=== PATIENT | female | born 1990 ===

== ENCOUNTER 2018-02-24 11:48 | Emergency (ER) | payer OTHER ==
[2018-02-24 12:09] VITALS: BP 105/69
--- NOTE | 2018-02-24 12:15 | UC ---
Throat Pain/Nasal [place] HPI - HPI Summary HPI Summary: 5 days of sinusitis symptoms,. pt states shes approx 12wks. and last night noticed her epiglottis was large but denied any swallowing or breathing issues. - History of Current Complaint Chief Complaint: UCRespiratory Stated Complaint: SINUS COMPLAINT,SORE THROAT Time Seen by Provider: 02/24/18 12:10 Hx Obtained From: Patient ?: Yes - 12 wks Pain Intensity: 6 Pain Scale Used: 0-10 Numeric Cough: Nonproductive - Allergies/Home Medications Allergies/Adverse Reactions: Allergies Allergy/AdvReac Type Severity Reaction Status Date / Time Sulfa (Sulfonamide Allergy Severe Anaphylatic Verified 02/24/18 12:10 Antibiotics) Shock Home Medications: Home Medications Enoxaparin(*) [Lovenox(*)] 02/24/18 [History] [id number]/Iron Fum/Folic/Docusate [ 19 Tablet] 02/24/18 [History] PMH/Surg Hx/FS Hx/Imm Hx - Additional Past Medical History Additional PMH: FACTOR V DEF Previously Healthy: Yes - Cardiovascular History: Bleeding Disorders - Surgical History Surgical History: Yes Surgery Procedure, Year, and Place: tonsils, wisdom teeth - Social History Alcohol Use: None Substance Use Type: None Smoking Status (MU): Never Smoked Tobacco Review of Systems All Other Systems Reviewed And Are Negative: Yes Constitutional: Positive: Chills. Negative: Fever, Fatigue ENT: Positive: Sinus Congestion, Sinus Pain/Tenderness Gastrointestinal: Positive: Vomiting - 1 EPISODE, Other - denies swallowing issues Genitourinary: Negative: Dysuria Neurological: Negative: Headache Psychological: Positive: Depressed Physical Exam Triage Information Reviewed: Yes Appearance: Well-Appearing Vital Signs: Initial Vital Signs Temp 98.6 F 02/24/18 12:04 Pulse 68 02/24/18 12:04 Resp 16 02/24/18 12:04 BP 105/69 02/24/18 12:04 Pulse Ox 98 02/24/18 12:04 Vital Signs Reviewed: Yes Eyes: Positive: Conjunctiva Clear ENT: Positive: Pharynx normal, Nasal congestion, TMs normal, Uvula midline, Other - epiglottis noted, not enlarged or red.. Negative: Tonsillar swelling, Dental tenderness, Sinus tenderness Neck: Positive: Supple, Nontender, No Lymphadenopathy Respiratory Exam: Normal Cardiovascular Exam: Normal Neurological: Positive: Alert Skin Exam: Normal Throat Pain/Nasal Course/Dx - Course Assessment/Plan: Sinusitis w/ sore throat likely from post nasal drip. Rapid strep neg. comfort measures for this as it is viral. Her concern for epiglottitis was noted but she does not have this dx. vitals good. On exam she has a prominent epiglottitis which is a normal variant. We discussed her returning to urgent care should she develop breathing problems or fever. - Differential Dx/Diagnosis Differential Diagnosis/HQI/PQRI: Epiglottitis, Pharyngitis, Tonsillitis, URI Provider Diagnosis: Sinusitis, acute Discharge - Sign-Out/Discharge Documenting (check all that apply): Patient Departure All imaging exams completed and their final reports reviewed: No Studies - Discharge Plan Condition: Good Disposition: HOME Patient Education Materials: Sinusitis (ED) Referrals: No Primary Care Phys,NOPCP [Primary Care Provider] - Additional Instructions: Your rapid strep was negative and I do not think you have epiglottitis. Your sinusitis is viral and self limiting; it will go away soon. Should you develop fever or breathing issues please return. - Billing Disposition and Condition Condition: GOOD Disposition: Home
== END 2018-02-24 13:11 | disposition home or self-care (01) ==
LOC: UCEAST 11:48
DX: O99.511 Diseases of the respiratory system complicating pregnancy, first trimester (principal); O99.112 Other diseases of the blood and blood-forming organs and certain disorders involving the immune mechanism complicating pregnancy, second trimester; J01.90 Acute sinusitis, unspecified; D68.2 Hereditary deficiency of other clotting factors; Z3A.12 12 weeks gestation of pregnancy; Z88.2 Allergy status to sulfonamides
CPT/HCPCS: 87651; 99201; G0463